=== PATIENT | female | born 1955 ===

== ENCOUNTER 2016-09-02 09:16 | Day surgery (SDC) | payer OTHER ==
[2016-08-30 11:58] VITALS: BMI 25.6
[2016-09-02 09:43] LABS: GLUCOSE,POC 115 mg/dL (65-110)
[2016-09-02] MEDS ORDERED: Iodixanol 320 MG/ML 200 ML BOTTLE IV ONE (13:00)
[2016-09-02] MEDS ORDERED: Midazolam 2 MG/2 ML VIAL ONE ×2 (13:00→13:45)
[2016-09-02] MEDS ORDERED: Nitroglycerin 50mg in D5W 250 ML IV ONE (13:53)
--- NOTE | 2016-09-02 14:36 | CP.SDSHP ---
Same Day Surgery H & P - History Proposed Procedure: see enclosed H and P. no changes - Allergies Allergies: Allergies No Known Allergies Allergy (Verified 11/24/15 08:12) - Physical Exam Vital Signs: Vital Signs 09/02/16 09:34 Temperature 97.8 F Pulse Rate 70 Respiratory 20 Rate Blood Pressure 155/83 H O2 Sat by Pulse 95 Oximetry Short Stay Discharge - Short Stay Discharge Admitting Diagnosis/Reason for Visit: PVD Disposition: HOME/ ROUTINE
[2016-09-02] MEDS: Sodium Chloride 0.45% 1,000 ML IV SCH (15:03)
[2016-09-02 15:08] LABS: GLUCOSE,POC 92 mg/dL (65-110)
--- NOTE | 2016-09-02 15:37 | OP ---
PROCEDURE DATE: 09/02/2016 PREOPERATIVE DIAGNOSIS: Peripheral vascular disease with claudication. POSTOPERATIVE DIAGNOSIS: Right distal superficial femoral artery stenosis. PROCEDURE PERFORMED: Retrograde access left common femoral artery, selective catheter placement in the right anterior tibial artery, abdominal aortography with bilateral iliofemoral runoff, bilateral lower extremity angiography, placement of distal embolic protection device in the right distal popliteal artery, atherectomy right superficial femoral artery. SURGEON: Ani Pride MD. COMPLICATIONS: None. HISTORY: This patient is a 60-year-old female with past medical history of coronary artery disease, status post stent to the left anterior descending artery, peripheral vascular disease, status post bilateral endovascular intervention, who has lifestyle limiting claudication. She presents for peripheral angiography and possible intervention. DESCRIPTION OF PROCEDURE: After obtaining informed consent, the patient was prepped and draped in the usual sterile fashion. The left groin was anesthetized with 2% lidocaine solution. A 5-[place] sheath was inserted into the left common femoral artery via modified Seldinger technique. A modified hook catheter was advanced to the infrarenal abdominal aorta. Abdominal aortography was performed. The catheter was positioned at the iliac bifurcation. Bilateral iliofemoral runoff was performed. Selective catheter placement with selective angiography was performed, which is described separately below. At the conclusion of the procedure, all catheters were removed and an 8-[place] Angio-Seal device was deployed successfully to achieve hemostasis. FINDINGS: The infrarenal abdominal aorta is free of aneurysm or dissection. Bilateral renal arteries arise normally and no significant atherosclerosis. There is mild atherosclerotic plaque of the proximal right common iliac artery. Otherwise, there is no significant iliac disease bilaterally. In the left leg , the left superficial femoral artery has mild disease throughout. The site of previous endovascular intervention is patent. There is 2-vessel runoff to the left foot. In the right leg, there is mild eccentric calcification of the right proximal and mid superficial femoral artery. There is a 95% stenosis of the distal right superficial femoral artery. This is at the site of previous endovascular intervention. There is mild atherosclerosis of the popliteal artery. Two vessel runoff is supplied by the anterior tibial artery and peroneal artery. The proximal posterior tibial artery is occluded with reconstitution distally to supply the arch of the foot. INTERVENTION: The patient was anticoagulated with heparin to achieve a therapeutic activated clotting time. The 5-[place] sheath was exchanged for a 7- [place] Cook sheath, which was selectively placed in the right common femoral artery via contralateral approach. An [employer] ES guidewire was loaded onto a TrailBlazer catheter. The guidewire was navigated to the distal anterior tibial artery. The TrailBlazer support catheter was advanced and selectively placed in the distal right anterior tibial artery. The guidewire was removed in exchange for an Hale bare guidewire. The wire was placed in the distal anterior tibial artery. The Trailblazer catheter was removed. The Reginald 6 Emboshield distal embolic protection device was then loaded onto the bare wire and was positioned and then was deployed in the distal right popliteal artery. The [employer] Pantheris atherectomy device was loaded onto the bare wire and was placed at the proximal portion of the stenosed segment of the distal right SFA.. With use of Lumivascular guidance, the directional cutting was performed to avoid [place] vessel injury. Selective cuts were performed and atherectomy was successful. The Pantheris device was removed. Angiography revealed widely patent distal superficial femoral artery with no significant recoil. There was no evidence of distal embolization. All guidewires and sheaths were removed. The patient tolerated the procedure well. CONCLUSION: Successful Lumivascular guided atherectomy of the distal right superficial femoral artery with the Pantheris atherectomy device. PLAN: The patient will continue with antiplatelet therapy. She will be discharged the same hospital day. Smoking cessation has been stressed. Ani Pride MD cc: [id number] TT: 09/02/2016 15:36:51 calvin DIXON
[2016-09-02 16:33] VITALS: TEMP 97.4
[2016-09-02 17:39] VITALS: RESP 20
[2016-09-02 17:51] VITALS: O2SAT 100
[2016-09-02 18:56] VITALS: BP 168/73; PULSE 75
== END 2016-09-02 18:57 | disposition home or self-care (01) ==
LOC: C.CATHLAB 09:16
PROVIDERS: ATTEND Internal Medicine Cardiovascular Disease
DX: I70.211 Atherosclerosis of native arteries of extremities with intermittent claudication, right leg (principal)